=== PATIENT | female | born 1970 | race Caucasian/White ===

== ENCOUNTER → 2017-01-16 | Outpatient (CLI) | payer OTHER ==
--- NOTE | ~2017-01-16 | ECHO ---
Transthoracic Echocardiography Report (TTE) Demographics Patient Name ISAAK GA Date of Study 01/16/2017 Patient Number [id number] Visit Number [id number] Date of 1970 Room Number Gender Female Number Age 46 year(s) Referring Dariana Sepulveda Drug Abuse Counselor Vin Fontaine RDCS, Physician LIO RVT Physician Interpreting Elissa Jain MD Electric Screw Driver Operator Physician Supervising Ordering Sarai Ken MD/RAYO Physician MD Nurse Stress Regulator Pin Inserter Conclusions Contractility Score Summary Normal Left Ventricular contractility was noted. Summary Technically difficult exam due to breast implant. The estimated left ventricular ejection fraction is 60%. Mild tricuspid regurgitation by color Doppler. There appears to be a small left to right membranous ventricular septal defect. Procedure Type of Study TTE procedure:2D Echocardiogram. Procedure Date Date: 01/16/2017 Start: 01:09 PM Study Location: Echo Lab Technical Quality: Limited visualization due to breast augmentation. Indications:VSD and Heart murmur. Appropriate Use Criteria: 9 Patient Status: Routine HR: 82 bpm BP: 135/74 mmHg M-Mode/2D Measurements LV Diastolic Dimension: 4.32 cm LV Systolic Dimension: 2.21 cm LV Septum Diastolic: 0.99 cm LV PW Diastolic: 0.96 cm Cardiac Output: 4.39 l/min LA Dimension: 4 cm RV Diastolic Dimension: 3.41 cm LVOT: 2.3 cm LVOT VTI: 12.9 cm LV Stroke volume: 53.57 ml TAPSE: 2.14 cm TDI-S': 9.76 cm/s Doppler Measurements AV Peak Velocity: 1.35 m/s MV Peak E-Wave: 0.64 m/s AV Peak Gradient: 7.29 mmHg MV Peak A-Wave: 0.74 m/s AV Mean Gradient: 5 mmHg MV E/A Ratio: 0.86 LVOT Peak Velocity: 0.69 m/s MV P1/2t: 66 msec TR Gradient:22.09 mmHg PV Peak Velocity: 0.84 m/s Estimated RAP:5 mmHg PV Peak Gradient: 2.83 mmHg Estimated RVSP: 27 mmHg Estimated PASP: 27.09 mmHg E' Septal Velocity: 0.05 m/s A' Septal Velocity: 0.07 m/s E' Lateral Velocity: 0.09 m/s A' Lateral Velocity: 0.13 m/s Findings Left Ventricle Diastolic assessment reveals normal relaxation. There appears to be a small left to right membranous ventricular septal defect. Right Ventricle Normal right ventricle structure and function. Left Atrium Normal appearing left atrial size. Mitral Valve Mild mitral regurgitation by color Doppler. Aortic Valve Normal aortic valve structure and function. Tricuspid Valve Mild tricuspid regurgitation by color Doppler. Pulmonic Valve Normal pulmonic valve structure and function. Pericardial Effusion No evidence of pericardial effusion. Miscellaneous Visualized portions of the aortic root and ascending aorta appear normal in size. Pleural Effusion No evidence of pleural effusion. Contractility Score LV regional wall motion:(0-Non visualized 1-Normal 2-Hypokinesis 3-Akinesis 4-Dyskinesis 5-Aneurysm) Signature dtt: Cristobal Bowers (cardio) dtd: 01/16/17 [id number] Physician Self Edit
== END | disposition disaster alternative care site (69) ==
LOC: GCAR 13:00
DX: E11.9 Type 2 diabetes mellitus without complications (principal); I07.1 Rheumatic tricuspid insufficiency